=== PATIENT | male | born 2000 | race Asian ===

== ENCOUNTER 2019-03-21 08:11 | Emergency (ER) | payer MEDICAID ==
[~2019-03-21] VITALS: Ht 162.6 cm; Wt 54.4 kg
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
[2019-03-21] MEDS ORDERED: LORAZEPAM 0.5 MG TABLET ONE (08:24)
[2019-03-21] MEDS ORDERED: IBUPROFEN 400 MG TABLET ONE (08:24)
[2019-03-21] MEDS: IBUPROFEN 400 MG TABLET PO ONE (08:27)
[2019-03-21] MEDS: LORAZEPAM 1 MG TABLET PO ONE (08:27)
--- NOTE | 2019-03-21 08:35 | NUR ---
XRAY IN PROGRESS AT BS.
[2019-03-21 08:41] VITALS: BP 144/87
--- NOTE | 2019-03-21 09:43 | NUR ---
DRUG SCREEN NOT NEEDED PER DR WORRELL.
== END 2019-03-21 09:47 | disposition home or self-care (01) ==
LOC: ER 08:12
DX: S90.32XA Contusion of left foot, initial encounter (principal); G40.909 Epilepsy, unspecified, not intractable, without status epilepticus; W22.8XXA Striking against or struck by other objects, initial encounter; Y93.51 Activity, roller skating (inline) and skateboarding; Y92.89 Other specified places as the place of occurrence of the external cause; Y99.8 Other external cause status
CPT/HCPCS: 73630-TC